=== PATIENT | male | born 2000 | race Two or more races ===

== ENCOUNTER → 2024-06-02 | Emergency (ER) | payer MEDICAID, OTHER | END | disposition left against medical advice (07) | LOC: ER 13:01 | DX: T14.90XA Injury, unspecified, initial encounter (principal); Z53.21 Procedure and treatment not carried out due to patient leaving prior to being seen by health care provider ==

== ENCOUNTER 2025-02-11 11:57 | Emergency (ER) | payer MEDICAID ==
[~2025-02-11] VITALS: Ht 188 cm; Wt 100.0 kg
[2025-02-11 12:01] VITALS: TEMP 99.4
--- NOTE | 2025-02-11 12:21 | ED.PDOC ---
History of Present Illness HPI Comments This is a 24-year-old male with past medical history of anxiety presented to the ED with a chief complaint of intermittent tingling and numbness of bilateral upper and lower extremity, lip numbness and speech difficulty for last 2 weeks prior to this visit. The patient states he has a anxiety disorder but was not on any medication, noticing tingling numbness, numbness in the lips and speech difficulty getting worse that prompted this visit. He denies chest pain, shortness of breath, blurred vision, dysuria, hematuria or any changes in bowel and bladder habit Chief Complaint: General Weakness Time Seen by MD: 11:59 Allergies: Coded Allergies: NO KNOWN ALLERGIES (Unverified , 02/11/25) Information Source: Patient Mode of Arrival: Ambulatory Severity: Mild Timing: Days Duration: Since onset Prehospital treatment: None Past Medical History PAST MEDICAL HISTORY: Anxiety Surgical History: Denies all surgeries Family History Family History: Reviewed,noncontributory to illness Social History Smoker: Pipe Alcohol: Denies ETOH Use Drugs: Marijuana Lives In: Home Constitutional: denies: chills, diaphoresis, fatigue, fever, malaise, sweats, weakness, others EENTM: denies: blurred vision, double vision, ear bleeding, ear discharge, ear drainage, ear pain, ear ringing, eye pain, eye redness, hearing loss, mouth pain, mouth swelling, nasal discharge, nose bleeding, nose congestion, nose pain, photophobia, tearing, throat pain, throat swelling, voice changes, others Respiratory: denies: cough, hemoptysis, orthopnea, SOB at rest, shortness of breath, SOB with excertion, stridor, wheezing, others Cardiovascular: denies: chest pain, dizzy spells, diaphoresis, Dyspnea on exertion, edema, irregular heart beat, left arm pain, lightheadedness, palpitations, PND, syncope, others Gastrointestinal: denies: abdomen distended, abdominal pain, blood streaked bowels, constipated, diarrhea, dysphagia, difficulty swallowing, hematemesis, melena, nausea, poor appetite, poor fluid intake, rectal bleeding, rectal pain, vomiting, others Neurological: reports: numbness, tingling; denies: dizziness, fainting, headache, left sided numbness, left sided weakness, paresthesia, pre-existing deficit, right sided numbness, right sided weakness, seizure, speech problems, tremors, weakness, others Musculoskeletal: denies: back pain, gout, joint pain, joint swelling, muscle pain, muscle stiffness, neck pain, others Integumetry: denies: bruises, change in color, change in hair/nails, dryness, laceration, lesions, lumps, rash, wounds, others Allergic/Immunocompromised: denies: Difficulty Healing, Frequent Infections, Hives, Itching, others Hematologic/Lymphatic: denies: anemia, blood clots, easy bleeding, easy bruising, swollen glands, others Endocrine: denies: excessive hunger, excessive sweating, excessive thirst, excessive urination, flushing, intolerance to cold, intolerance to heat, unexplained weight gain, unexplained weight loss, others Psychiatric: denies: anxiety, bipolar disorder, depression, hopeless, panic disorder, schizophrenia, sleepless, suicidal, others Physical Exam General Appearance: Normal HEENT: Normal ENT Inspection, Pharynx Normal, TMs Normal Neck: Full Range of Motion, Non-Tender, Normal, Normal Inspection Respiratory: Chest Non-Tender, Lungs Clear, No Accessory Muscle Use, No Respiratory Distress, Normal Breath Sounds Cardiovascular: No Edema, No JVD, No Murmur, No Gallop, Normal Peripheral Pulses, Regular Rate/Rhythm Breast Exam: Deferred Gastrointestinal: No Organomegaly, Non Tender, No Pulsatile Mass, Normal Bowel Sounds, Soft Genitalia: Deferred Pelvic: Deferred Rectal: Deferred Extremities: No calf tenderness, Normal capillary refill, Normal inspection, Normal range of motion, Non-tender, No pedal edema Neurologic: NOT DONE Cerebellar Function: NOT DONE Reflexes: NOT DONE Skin: NOT DONE Peripheral Pulses: 2+ carotid (R), 2+ carotid (L), 2+ femoral (R), 2+ femoral (L), 2+ dorsalis pedis (R), 2+ dorsalis pedis (L), 2+ Radial (R), 2+ Radial (L), 2+ Brachial (R), 2+ Brachial (L) Lymphatic: NOT DONE Was a procedure done? Was a procedure done?: No EKG EKG : Cardiac Rhythm: NSR Comments Normal sinus rhythm. Differential Dx Considerations may include: Generalized anxiety disorder, panic attack, hyperventilation, B12 deficiency X-Ray, Labs, Meds, VS Vital Signs Date Time Temp Pulse Resp B/P (MAP) Pulse Ox O2 Delivery O2 Flow Rate FiO2 02/11/25 14:56 92 18 99 Room Air 02/11/25 14:56 92 18 128/72 (90) 99 02/11/25 12:12 94 02/11/25 12:01 99.4 89 15 161/55 97 99.4 Lab Test 02/11/25 15:00 Range/Units Urine Opiates Screen Pending Urine Fentanyl Screen Pending Urine Barbiturates Screen Pending Urine Phencyclidine Screen Pending Urine Amphetamines Screen Pending Urine Benzodiazepines Screen Pending Urine Cocaine Screen Pending Urine Cannabinoids Screen Pending Current Medications Medications (Trade) Dose Ordered Sig/Malika Route Start Time Stop Time Status Last Admin Lorazepam (Ativan Tablet) 0.5 mg ONCE ONCE PO 02/11/25 12:30 02/11/25 12:37 DC 02/11/25 12:30 X-Ray, Labs, Meds, VS Comment EXAM: XY CHEST PORTABLE Indication: sob Technique: Single frontal view of the chest was obtained Comparison: None FINDINGS: Lines and Tubes: None Lungs: No focal consolidation. Pleura: No effusion. No pneumothorax. Cardiomediastinal contours: Unremarkable Bones: No acute osseous abnormality. IMPRESSION: No acute cardiopulmonary disease. Images Reviewed?: Images reviewed and evaluated by me Time of 1ST Reevaluation: 15:00 Reevaluation 1ST: Improved Patient Education/Counseling: Diagnosis, Treatment Family Education/Counseling: No Family Present Comments This is a 24-year-old male with history of anxiety disorder presented to the ED with a complaint of tingling and numbness in bilateral extremities, numbness in the lips and speech difficulty. Initially patient was tachycardic, BP was slightly elevated 161/55 EKG revealed sinus rhythm Discussed with the patient regarding his symptoms likely due to related to the anxiety. The patient understand and agreed with the plan of care Advised the patient to follow up with PCP for further evaluation and management of anxiety Ativan 0.5 mg p.o. once given Follow up blood pressure was normal 128/72. SEPSIS Sepsis Screen Date sepsis recognized/suspect: Feb 11, 2025 Time Sepsis recognized/suspect: 1203 Recent Procedure: No On Antibiotic Therapy: No Respiratory Rate >20: No Heart Rate >90: No Temp<36 C (96.8 F) or >38.3 C: No SBP <90 or MAP <65 mmHG: No New Acute Mental Status Change: No Is the patient on CPAP, BIPAP,: No Physician Orders Electrocardigram (02/11/25 12:14) Drug Screen (02/11/25 12:15) Chest Portable (02/11/25 12:15) Vital Signs Date Time Temp Pulse Resp B/P (MAP) Pulse Ox O2 Delivery O2 Flow Rate FiO2 02/11/25 14:56 92 18 99 Room Air 02/11/25 14:56 92 18 128/72 (90) 99 02/11/25 12:12 94 02/11/25 12:01 99.4 89 15 161/55 97 99.4 Medications Medications Dose Ordered Sig/Malika Route Start Time Stop Time Status Last Admin Dose Admin Lorazepam 0.5 mg ONCE ONCE PO 02/11/25 12:30 02/11/25 12:37 DC 02/11/25 12:30 Departure 1 Departure Time of Disposition: 15:18 Impression: Primary Impression: Anxiety Additional Impression: Panic disorder Disposition: 01 HOME / SELF CARE / HOMELESS Condition: Fair Critical Care Note Critical Care Time?: No Stability Stability form required: NATHALIE Urrutia RESIDENT Feb 11, 2025 12:21
[2025-02-11] MEDS: LORazepam 0.5 MG TAB PO ONE (12:30)
--- NOTE | 2025-02-11 12:58 | DVH ---
EXAM: XY CHEST PORTABLE Indication: sob Technique: Single frontal view of the chest was obtained Comparison: None FINDINGS: Lines and Tubes: None Lungs: No focal consolidation. Pleura: No effusion. No pneumothorax. Cardiomediastinal contours: Unremarkable Bones: No acute osseous abnormality. IMPRESSION: No acute cardiopulmonary disease.
[2025-02-11 14:56] VITALS: BP 128/72; PULSE 92; RESP 18; O2SAT 99
[2025-02-11 15:27] LABS: Benzodiazephine Screen, Urine Neg (NEGATIVE)
[2025-02-11 15:28] LABS: Amphetamine Screen, Urine Neg (NEGATIVE); Barbiturate Scree,Urine Neg (NEGATIVE); Cannabinoid Screen, Urine Pos (NEGATIVE); Cocaine Screen, Urine Neg (NEGATIVE); Opiate Scree,Urine Neg (NEGATIVE); Phencyclidine Screen, Urine Neg (NEGATIVE)
--- NOTE | 2025-02-13 14:56 | ECG ---
[facility] Test Date: 2025-02-11 Test Time: 12:11:30 Pat Name: MILENA PARK Department: ED Room: Gender: M Casing Fluid Tender: MINERVA : 2000 Requested By: NATHALIE ARELLANO Order Number: [id number] Reading MD: Thompson Lugo Measurements Intervals [place] Rate: 86 P: -8 NC: 160 QRS: 188 QRSD: 104 T: 61 QT: 357 QTc: 427 Interpretive Statements Sinus rhythm Probable right ventricular hypertrophy ST elev, probable normal early repol pattern Artifact in lead(s) I,II,III,aVR,aVL,V1 Electronically Signed On 02-16-2025 17:57:30 PDT by Thompson Lugo Please click the below link to view image of tracing.
--- NOTE | 2025-02-16 14:29 | ECG ---
[facility] Test Date: 2025-02-11 Test Time: 12:12:55 Pat Name: MILENA PARK Department: ED Room: Gender: M Assembler Body: [place] : 2000 Requested By: MIGUE YU Order Number: [id number] Reading MD: Thompson Lugo Measurements Intervals [place] Rate: 94 P: 39 CO: 157 QRS: 198 QRSD: 107 T: 61 QT: 353 QTc: 442 Interpretive Statements Sinus rhythm Probable right ventricular hypertrophy ST elev, probable normal early repol pattern Electronically Signed On 02-16-2025 17:57:35 PDT by Thompson Lugo Please click the below link to view image of tracing.
== END 2025-02-11 16:10 | disposition home or self-care (01) ==
LOC: ER 11:57
DX: A41.9 Sepsis, unspecified organism (principal); F41.0 Panic disorder [episodic paroxysmal anxiety]; F17.290 Nicotine dependence, other tobacco product, uncomplicated; Z79.899 Other long term (current) drug therapy
CPT/HCPCS: 71045; 80307; 82947; 93005